=== PATIENT | male | born 1955 | race Caucasian/White ===

== ENCOUNTER → 2016-04-17 | Day surgery (SDC) | payer BC ==
[~2016-04-17] VITALS: Ht 188 cm; Wt 86.5 kg
[~2016-04-17] MED LIST: ALLO100T PO; AMLO5TAB2 PO; CLON0.1T PO; CYCLOPENTOLATE HCL 1% OPHT SOLN 2 ML BTL ONE; DEXAMETHASONE SOD PHOS 4 MG/ML VIAL ONE; DIFL0.0512 LEFT EYE; ENAL20TA PO; EPINEPHrine-Lidocaine/BSS (PF/SF) 4-120 mg/16 mL OPTH SYR LEFT EYE ONE; GEMF600T PO; HYALURONIDASE/LIDOCAINE/EPINEPHRINE/BUPIVACAINE 4.5 ML SYR LEFT EYE ONE; HYALURONIDASE/LIDOCAINE/EPINEPHRINE/BUPIVACAINE 6 ML SYR LEFT EYE ONE; HYDR12.57 PO; KETO0.5S2 LEFT EYE; MIDAZOLAM HCL 5 MG/ML VIAL (1 ML) ONE; NEPA0.3D LEFT EYE; ONDANSETRON HCL 4 MG/2 ML VIAL IV PUSH ONE; PRED1SUS LEFT EYE; PROPOFOL 200 MG/20 ML AMP IV ONE; SODIUM CHLORID 0.9% 500 ML INJ 500 ML ONE; TETRACAINE 0.5% OPTH SOLN 2 ML BTL ONE; TROPICAMIDE 1% OPHT SOLN 15 ML BTL ONE; VIGA0.5D LEFT EYE
[2016-04-17 06:39] VITALS: BP 147/77; PULSE 116; RESP 18; TEMP 98.2; O2SAT 98
[2016-04-17] MEDS: TROPICAMIDE 1% OPHT SOLN 15 ML BTL LEFT EYE SCH ×3 (06:47→06:57)
[2016-04-17] MEDS: CYCLOPENTOLATE HCL 1% OPHT SOLN 2 ML BTL LEFT EYE SCH ×3 (06:47→06:57)
[2016-04-17] MEDS: TETRACAINE 0.5% OPTH SOLN 2 ML BTL LEFT EYE SCH ×3 (06:47→06:57)
[2016-04-17] MEDS: PHENYLEPHRINE HCL 10% OPTH SOLN 5 ML BTL LEFT EYE SCH ×3 (06:47→06:57)
[2016-04-17] MEDS: TOBRAMYCIN/DEXAMETHASONE OPTH OINT 3.5 GM TUBE ONE ×2 (07:48→08:37)
[2016-04-17 10:00] VITALS: BP 123/64; PULSE 85; RESP 16; TEMP 98.5; O2SAT 97
--- NOTE | 2016-04-17 10:22 | PD.OP ---
Operative Report Date of Surgery: Apr 17, 2016 Preoperative Diagnosis: (1) Posterior subcapsular age-related cataract, left eye Postoperative Diagnosis: (1) Pseudophakia of left eye Procedure: phacoemulsification and intraocular lens implant left eye Anesthesia: General Surgeon: Anayeli Vang Mobility Engineer(s): none Operation and Findings: Patient was consented for surgery and taken back to the operating room. He was put under general anesthesia and prepped and draped in the usual sterile fashion for ophthalmic surgery. A wire lid speculum was placed in the left eye. A paracentesis incision was created at the 5 o'clock position on the limbus. Vision blue dye and viscoelastic was injected into the anterior chamber. The main incision was created at the 2 o'clock position on the limbus with a 2.4 mm keratome. A continuous curvilinear capsulorrhexis was made on the anterior lens capsule. Hydrodissection was used to separate the lens nucleus from the capsule. Phacoemulsification was used to remove the lens nucleus material. Irrigation and aspiration was used to remove the remaining cortical material. The lens implant ([id number] [id number] SN [id number]) was placed in the capsular bag. Viscoelastic was removed with irrigation and aspiration. The incisions were irrigated and found to be watertight. Tobradex ointment, a patch, and shield were placed on the left eye. The patient was sent to PACU in stable condition. Anayeli Vang MD Apr 17, 2016 10:22
== END | disposition home or self-care (01) ==
LOC: CSDC 05:45
PROVIDERS: ATTEND Ophthalmology
DX: H25.042 Posterior subcapsular polar age-related cataract, left eye (principal)
CPT/HCPCS: 00142; 66984; J1100; J2250; J2405; J3010; J7040; V2632

== ENCOUNTER 2017-11-03 09:08 | Observation (INO) ==
--- NOTE | 2017-11-03 09:28 | ED ---
HPI General Chief Complaint: Recheck/Abnormal Lab/Rx Stated Complaint: PHY sent Time Seen by Provider: 11/03/17 09:25 Source: patient Mode of arrival: ambulatory Limitations: no limitations History of Present Illness HPI narrative: 62-year-old male patient with history of hypertension, presents to the ER today sent in by his primary care doctor because he found that his heartbeat was irregular at their clinic visit today. Patient states that he feels fine, denies any chest pains, dizziness, or any other symptoms. He states that he was a routine clinic evaluation. Related Data Home Medications Medication Instructions Recorded Confirmed allopurinol 100 mg PO DAILY 11/03/17 11/03/17 amlodipine 11/03/17 11/03/17 amlodipine 5 mg PO DAILY 11/03/17 11/03/17 clonidine HCl 0.1 mg PO QAM AND QHS 11/03/17 11/03/17 enalapril maleate 20 mg PO DAILY 11/03/17 11/03/17 gemfibrozil 600 mg PO BID 11/03/17 11/03/17 hydrochlorothiazide 12.5 mg PO DAILY 11/03/17 11/03/17 Allergies Allergy/AdvReac Type Severity Reaction Status Date / Time No Known Allergies Allergy Verified 11/03/17 09:14 Review of Systems ROS: all other systems reviewed are negative PMFSH History History Provided By: Patient Medical History Medical History High cholesterol (Acute) Prediabetes (Acute) HTN (hypertension) (Acute) Social History Social History Substance History: No History of Abuse Second Hand Smoke Exposure: No Smoking Status: Never smoker How Often Do You Have a Drink Containing Alcohol: 4 or more times a week Recent Travel in [facility] within the Last 8 Weeks: No Recent Out of Country Travel within the Last 8 Weeks: No Exam Narrative Exam Narrative: GENERAL: Well-developed elderly white male patient currently in no acute distress. Awake and oriented 3. SKIN: Focused skin assessment warm/dry. HEAD: Atraumatic. Normocephalic. EYES: Pupils equal and round. No scleral icterus. No injection or drainage. ENT: No nasal bleeding or discharge. Mucous membranes pink and moist. NECK: Trachea midline. No JVD. CARDIOVASCULAR: Irregularly irregular. No rubs or murmurs. RESPIRATORY: No accessory muscle use. Clear to auscultation. Breath sounds equal bilaterally. GASTROINTESTINAL: Abdomen soft, non-tender, nondistended. Hepatic and splenic margins not palpable. MUSCULOSKELETAL: No obvious deformities. No clubbing. No cyanosis. No edema. NEUROLOGICAL: Awake and alert. No obvious cranial nerve deficits. Motor grossly within normal limits. Normal speech. PSYCHIATRIC: Appropriate mood and affect; insight and judgment normal. Course Initial Documented Vital Signs Temperature 97.5 F L 11/03/17 09:12 Pulse Rate 98 H 11/03/17 09:12 Respiratory Rate 19 11/03/17 09:12 Blood Pressure 167/83 H 11/03/17 09:12 Pulse Oximetry 99 11/03/17 09:12 Last Documented Vital Signs Temperature 97.5 F L 11/03/17 09:12 Pulse Rate 101 H 11/03/17 09:14 Respiratory Rate 18 11/03/17 09:14 Blood Pressure 140/69 11/03/17 09:14 Pulse Oximetry 99 11/03/17 09:14 Medical Decision Making MDM Narrative Medical decision making narrative: EKG is definitely abnormal, but is not atrial fibrillation. I did hear some runs of irregular rhythm, it appears that they are PVCs on evaluation of patient's EKG from his physician. The current EKG is sinus tachycardia but he has T-wave changes which are notable in V1 through V4. On further questioning, the patient admits that he has been having some type of chest discomfort which he states feels like a rattling in his chest but that has been going on for 10 years and he reports no changes. He is still having some chest discomfort now. At this point, I think he does deserve further evaluation of his heart my plan would be to admit him to chest pain center for further evaluation. Medical Screen Exam Complete: Yes Emergency Medical Condition: Yes Differential Diagnosis Differential Diagnosis: Dysrhythmias versus electrolyte abnormalities Lab Data Lab results reviewed: Yes I reviewed the patient's lab results. Result diagrams: 11/03/17 09:49 11/03/17 09:49 Lab Results 11/03/17 11/03/17 11/03/17 Range/Units 09:49 09:49 09:49 WBC 5.0 (4.0-11.0) th/mm3 RBC 3.98 L (4.50-5.90) mil/mm3 Hgb 13.6 (13.0-17.0) gm/dL Hct 39.2 (39.0-51.0) % MCV 98.6 (80.0-100.0) fL MCH 34.2 H (27.0-34.0) pg MCHC 34.7 (32.0-36.0) % RDW 12.8 (11.6-17.2) % Plt Count 318 (150-450) th/mm3 MPV 7.4 (7.0-11.0) fL Neut % (Auto) 65.9 (16.0-70.0) % Lymph % (Auto) 20.0 (9.0-44.0) % [place] % (Auto) 10.8 H (0.0-8.0) % Eos % (Auto) 1.1 (0.0-4.0) % Baso % (Auto) 2.2 H (0.0-2.0) % Neut # (Auto) 3.3 (1.8-7.7) th/mm3 Lymph # (Auto) 1.0 (1.0-4.8) th/mm3 [place] # (Auto) 0.5 (0.0-0.9) th/mm3 Eos # (Auto) 0.1 (0.0-0.4) th/mm3 Baso # (Auto) 0.1 (0.0-0.2) th/mm3 WBC Differential . Differential Comment Auto diff final PT 10.4 (9.8-11.6) sec INR 1.0 Ratio APTT 24.8 (24.3-30.1) sec Sodium 136 (136-145) meq/L Potassium 3.8 (3.5-5.1) meq/L Chloride 100 (98-107) meq/L Carbon Dioxide 25.6 (21.0-32.0) meq/L Anion Gap 10 (5-15) meq/L BUN 16 (7-18) mg/dL Creatinine 0.97 (0.60-1.30) mg/dL Estimated GFR 78 L (>89) mL/min Random Glucose 120 H (74-106) mg/dL Calcium 8.9 (8.5-10.1) mg/dL Total Bilirubin 0.5 (0.2-1.0) mg/dL AST 41 H (15-37) U/L ALT 35 (12-78) U/L Alkaline Phosphatase 105 (45-117) U/L Troponin I Less than 0.02 L (0.02-0.05) ng/mL Total Protein 7.7 (6.4-8.2) g/dL Albumin 3.9 (3.4-5.0) g/dL Imaging Data Attestation: I personally reviewed and interpreted this imaging study as follows : Radiologist's impression: Chest X-Ray 11/03/17 09:25 CONCLUSION: Negative for acute process ECG Data Attestation: I personally reviewed and interpreted this ECG as follows: Interpretation: EKG shows sinus tachycardia at a rate of 100 bpm. He has T- wave inversions notable in V1 through V4. I do not see any signs of acute ST elevations. These findings were seen and the EKG sent by his primary care doctor's office from this morning as well. Discharge Plan Discharge Disposition Patient Disposition: 30 Still Patient Discharge Condition Condition: Stable Discharge Details Anticipated Discharge Date: 11/03/17 Diagnosis: Atypical chest pain, Abnormal ECG Physicians Team ED Provider: Wendy Sunshine Primary Care Provider: Burt Guevara Rxs /Orders / Referrals /Forms Prescriptions: No Action enalapril maleate 20 mg Tablet 20 mg PO DAILY RF: 0 amlodipine 5 mg Tablet 5 mg PO DAILY RF: 0 allopurinol 100 mg Tablet 100 mg PO DAILY RF: 0 gemfibrozil 600 mg Tablet 600 mg PO BID RF: 0 hydrochlorothiazide 12.5 mg Capsule 12.5 mg PO DAILY RF: 0 clonidine HCl 0.1 mg Tablet Extended Release 12 Hr 0.1 mg PO QAM AND QHS RF: 0 amlodipine RF: 0 Discharge Interventions Interventions: Vital Signs Last Done: 11/03/17 09:14 Status ED Status: Admitted Patient
[2017-11-03 10:07] LABS: Baso # (Auto) 0.1 th/mm3 (0.0-0.2); Baso % (Auto) 2.2 % (0.0-2.0); Eos # (Auto) 0.1 th/mm3 (0.0-0.4); Eos % (Auto) 1.1 % (0.0-4.0); Hematocrit 39.2 % (39.0-51.0); Hemoglobin 13.6 gm/dL (13.0-17.0); Mean Corpuscular HGB Conc 34.7 % (32.0-36.0); Mean Corpuscular Hemoglobin 34.2 pg (27.0-34.0); Mean Corpuscular Volume 98.6 fL (80.0-100.0); Mean Platelet Volume 7.4 fL (7.0-11.0); Mono # (Auto) 0.5 th/mm3 (0.0-0.9); Mono % (Auto) 10.8 % (0.0-8.0); Neut # (Auto) 3.3 th/mm3 (1.8-7.7); Neut % (Auto) 65.9 % (16.0-70.0); Platelet Count 318 th/mm3 (150-450); Red Blood Count 3.98 mil/mm3 (4.50-5.90); Red Cell Distribution Width 12.8 % (11.6-17.2)
[2017-11-03 10:22] LABS: Activated Partial Thrombo Time 24.8 sec (24.3-30.1); Prothrombin Time 10.4 sec (9.8-11.6)
[2017-11-03 10:25] LABS: Alanine Aminotransferase 35 U/L (12-78); Albumin 3.9 g/dL (3.4-5.0); Anion Gap 10 meq/L (5-15); Aspartate Aminotransferase 41 U/L (15-37); Blood Urea Nitrogen 16 mg/dL (7-18); Calcium 8.9 mg/dL (8.5-10.1); Carbon Dioxide 25.6 meq/L (21.0-32.0); Chloride 100 meq/L (98-107); Glomerular Filtration Rate 78 mL/min (>89); Glucose,Random 120 mg/dL (74-106); Potassium 3.8 meq/L (3.5-5.1); Sodium 136 meq/L (136-145)
[2017-11-03 10:31] LABS: Alkaline Phosphatase 105 U/L (45-117); Total Protein 7.7 g/dL (6.4-8.2)
--- NOTE | 2017-11-03 10:55 | XR ---
EXAM DATE: 11/03/2017 10:50 AM EDT AGE/SEX: 62 years / Male INDICATIONS: Patient seen today by primary care physician and sent to emergency room after abnormal EKG. CLINICAL DATA: This is the patient's initial encounter. Patient reports that signs and symptoms have been present for 1 day and indicates a pain score of 0/10. MEDICAL/SURGICAL HISTORY: None. None. COMPARISON: [facility] [place], CHEST SINGLE AP, 06/16/2014. . FINDINGS: A single AP view of the chest demonstrates the lungs to be symmetrically aerated without evidence of mass, infiltrate or effusion. The cardiomediastinal contours are unremarkable. Osseous structures a re intact. CONCLUSION: Negative for acute process Electronically signed by: Rashaun Rucker MD 11/03/2017 10:53 AM EDT
[2017-11-03] MEDS ORDERED: Iohexol 350 MG/ML 100 ML Vial (for Cath Lab) IVCONTRAST ONE (10:57)
--- NOTE | 2017-11-03 12:44 | P.HPCA ---
History of Present Illness Primary Care Physician: Burt Guevara MD Chief Complaint: Abnormal EKG History of Present Illness: This is a 62-year-old male with history of hypertension and hyperlipidemia that presents to ED at the request of his PCP to be evaluated for an abnormal EKG. Patient states he was in his doctor's office to review recent lab reports. States his labs are all looking fine. EKG was obtained showing with the patient states was an abnormality per his primary care physician. His primary care than urged him to go to the ED to seek evaluation. Patient denies chest pain. Denies any type of discomfort in his chest. Denies shortness of breath. Cannot recall prior stress test or heart catheterization. He was a past smoker. Quit 15 years ago. Patient with smoking cigarettes 15 years ago prior that he smoked 1/2-2 pack a series daily for about 20 years. Denies family history of CAD. Patient has history of hypertension and hyperlipidemia. - Diagnosis (1) Abnormal ECG (2) Hypertension (3) Hyperlipidemia Review of Systems General: Patient denies fevers, chills, and recent travel. HEENT: Patient denies headache, sore throat, difficulty swallowing. Cardiovascular: Denies chest discomfort as mentioned above. Denies sensation of heart beating rapidly or irregularly. No syncope. Denies diaphoresis. Respiratory: Denies shortness of breath or inspirational chest discomfort. Denies coughing wheezing or hemoptysis. GI: Patient denies nausea, vomiting, diarrhea, abdominal pain, bloody stools. Musculoskeletal: Patient denies joint pain or edema. Denies calf pain or edema. Neurovascular: Patient denies numbness, tingling, weakness in extremities. Denies headache. Endocrine: Denies polyuria and polydipsia. Hematologic: Denies easy bruising. Skin: Denies rash or itching. PMFSH - History History Provided By: Patient - Medical History Medical History: Medical History (Last Updated 11/03/17 @ 09:34 by Modesto Aguilar) High cholesterol Prediabetes HTN (hypertension) - Tobacco History Second Hand Smoke Exposure: No Tobacco Use In Past 30 Days: No Smoking Status: Never smoker - Alcohol History How Often Do You Have a Drink Containing Alcohol: 4 or more times a week - Substance Use History Substance History: No History of Abuse - Travel History Recent Travel in the [place] Within the Last 8 Weeks: No Recent Travel Out of the Country Within the Last 8 Weeks: No - Immunization History Tetanus Immunization: Never Vaccinated Hx Influenza Vaccine This Season: Yes Medications and Allergies Active Medications: Active Medications Ondansetron HCl (Zofran Inj) 4 mg IV.PUSH Q6H PRN PRN Reason: NAUSEA Sodium Chloride (Ns Flush) 2 ml IV.FLUSH UNSCH PRN PRN Reason: FLUSH AFTER USING IV ACCESS Sodium Chloride (Ns Flush) 2 ml IV.FLUSH BID [place] Sodium Chloride (Ns Flush) 2 ml IV.FLUSH PRN PRN PRN Reason: FLUSH AFTER USING IV ACCESS Allergies Allergy/AdvReac Type Severity Reaction Status Date / Time No Known Allergies Allergy Verified 11/03/17 09:14 Home Medications Medication Instructions Recorded Confirmed Type allopurinol 100 mg PO DAILY 11/03/17 11/03/17 History amlodipine 11/03/17 11/03/17 History amlodipine 5 mg PO DAILY 11/03/17 11/03/17 History clonidine HCl 0.1 mg PO QAM AND QHS 11/03/17 11/03/17 History enalapril maleate 20 mg PO DAILY 11/03/17 11/03/17 History gemfibrozil 600 mg PO BID 11/03/17 11/03/17 History hydrochlorothiazide 12.5 mg PO DAILY 11/03/17 11/03/17 History Exam Vital signs: Vital Signs 11/03/17 09:12 11/03/17 09:14 11/03/17 11:36 Temperature 97.5 F L Pulse Rate 98 H 101 H Respiratory Rate 19 18 Blood Pressure 167/83 H 140/69 Pulse Oximetry 99 99 99 11/03/17 12:00 Temperature 98.1 F Pulse Rate 101 H Respiratory Rate 16 Blood Pressure 139/73 Pulse Oximetry 99 Intake & Output 11/02/17 11/03/17 11/03/17 18:59 06:59 18:59 Weight 91.172 kg Narrative: GENERAL: This is a well-nourished, well-developed patient, in no apparent distress. Patient speaks in clear complete sentences. Patient is pleasant. HEENT: Head is atraumatic and normocephalic. Neck is supple without lymphadenopathy and trachea is midline. No JVD or carotid bruits. CARDIOVASCULAR: Regular rate and rhythm without murmurs, gallops, or rubs. RESPIRATORY: Clear to auscultation. Breath sounds equal bilaterally. No wheezes , rales, or rhonchi. Chest wall is nontender. No use of accessory muscles. GASTROINTESTINAL: Abdomen is nontender, nondistended. Abdomen soft. No obvious pulsatile mass or bruit. No CVA tenderness. Strong femoral pulses bilaterally. Normal bowel sounds in all quadrants. MUSCULOSKELETAL: Patient is moving upper and lower extremities freely. No calf tenderness or edema, no Homans sign. Strong pulses in upper and lower extremities. NEUROLOGICAL: Patient is alert and oriented. Cranial nerves 2-12 are grossly intact. No focal deficits and speech is clear. SKIN: No rash and turgor is normal. Results 11/03/17 09:49 11/03/17 09:49 Cardiac Enzymes 11/03/17 Range/Units 09:49 AST 41 H (15-37) U/L Troponin I Less than 0.02 L (0.02-0.05) ng/mL Coagulation 11/03/17 Range/Units 09:49 PT 10.4 (9.8-11.6) sec APTT 24.8 (24.3-30.1) sec CBC 11/03/17 Range/Units 09:49 WBC 5.0 (4.0-11.0) th/mm3 RBC 3.98 L (4.50-5.90) mil/mm3 Hgb 13.6 (13.0-17.0) gm/dL Hct 39.2 (39.0-51.0) % Plt Count 318 (150-450) th/mm3 Neut # (Auto) 3.3 (1.8-7.7) th/mm3 Lymph # (Auto) 1.0 (1.0-4.8) th/mm3 [place] # (Auto) 0.5 (0.0-0.9) th/mm3 Eos # (Auto) 0.1 (0.0-0.4) th/mm3 Baso # (Auto) 0.1 (0.0-0.2) th/mm3 Comprehensive Metabolic Panel 11/03/17 Range/Units 09:49 Sodium 136 (136-145) meq/L Potassium 3.8 (3.5-5.1) meq/L Chloride 100 (98-107) meq/L Carbon Dioxide 25.6 (21.0-32.0) meq/L BUN 16 (7-18) mg/dL Creatinine 0.97 (0.60-1.30) mg/dL Calcium 8.9 (8.5-10.1) mg/dL AST 41 H (15-37) U/L ALT 35 (12-78) U/L Alkaline Phosphatase 105 (45-117) U/L Total Protein 7.7 (6.4-8.2) g/dL Albumin 3.9 (3.4-5.0) g/dL Intake and Output 11/02/17 11/03/17 11/03/17 22:59 06:59 14:59 Other: Weight 91.172 kg Patient Weight 11/04/17 06:59 Weight 91.172 kg EKG interpretations - EKG EKG shows: sinus rhythm (EKG is sinus rhythm with nonspecific anteroseptal changes which were also on a prior EKG from 2015.) Caprini VTE Risk Assessment Caprini VTE Risk Assessment: Moderate/High Risk (score >= 2) Caprini Risk Assessment Model: Point Value = 1 Point Value = 2 Point Value = 3 Point Value = 5 Age 41-60 Minor surgery BMI > 25 kg/m2 Swollen legs Varicose veins or History of unexplained or recurrent spontaneous Oral contraceptives or hormone replacement Sepsis (< 1 month) Serious lung disease, including pneumonia (< 1 month) Abnormal pulmonary function Acute myocardial infarction Congestive heart failure (< 1 month) History of inflammatory bowel disease Medical patient at bed rest Age 61-74 Arthroscopic surgery Major open surgery (> 45 min) Laparoscopic surgery (> 45 min) Malignancy Confined to bed (> 72 hours) Immobilizing plaster cast Central venous access Age >= 75 History of VTE Family history of VTE Factor V Leiden Prothrombin [id number] Lupus anticoagulant Anticardiolipin antibodies Elevated serum homocysteine Heparin-induced thrombocytopenia Other congenital or acquired thrombophilia Stroke (< 1 month) Elective arthroplasty Hip, pelvis, or leg fracture Acute spinal cord injury (< 1 month) Prophylaxis Regimen: Total Risk Factor Score Risk Level Prophylaxis Regimen 0-1 Low Early ambulation 2 Moderate Order ONE of the following: *Sequential Compression Device (SCD) *Heparin 5000 units SQ BID 3-4 Higher Order ONE of the following medications: *Heparin 5000 units SQ TID *Enoxaparin/Lovenox 40 mg SQ daily (WT < 150 kg, CrCl > 30 mL/min) *Enoxaparin/Lovenox 30 mg SQ daily (WT < 150 kg, CrCl > 10-29 mL/min) *Enoxaparin/Lovenox 30 mg SQ BID (WT < 150 kg, CrCl > 30 mL/min) AND/OR *Sequential Compression Device (SCD) 5 or more Highest Order ONE of the following medications: *Heparin 5000 units SQ TID (Preferred with Epidurals) *Enoxaparin/Lovenox 40 mg SQ daily (WT < 150 kg, CrCl > 30 mL/min) *Enoxaparin/Lovenox 30 mg SQ daily (WT < 150 kg, CrCl > 10-29 mL/min) *Enoxaparin/Lovenox 30 mg SQ BID (WT < 150 kg, CrCl > 30 mL/min) AND *Sequential Compression Device (SCD) Assessment and Plan - Assessment (1) Abnormal ECG Code(s): R94.31 - Abnormal electrocardiogram [ECG] [EKG] Status: Acute (2) Hypertension Code(s): I10 - Essential (primary) hypertension Status: Acute (3) Hyperlipidemia Code(s): E78.5 - Hyperlipidemia, unspecified Status: Acute - Plan * Abnormal EKG: Patient denies having chest discomforts. An EKG from 2015 revealed similar findings. Patient will have a nuclear ETT and be seen by Dr. Chan Lopez of cardiology in the chest pain center. He will be discharged home if the stress test is nonischemic with instructions to follow-up with his PCP. Return to ED for interval issues. * Hypertension: Continue medication. * Hyperlipidemia: Continue medication. Patient is stable at this time. He is agreeable to this plan.
--- NOTE | 2017-11-03 15:21 | NM ---
EXAM DATE: 11/03/2017 3:13 PM EDT AGE/SEX: 62 years / Male INDICATIONS: Angina. Abnormal EKG CLINICAL DATA: This is the patient's initial encounter. Patient reports that signs and symptoms have been present for 1 day and indicates a pain score of 0/10. MEDICAL/SURGICAL HISTORY: Diabetes mellitus type II. Hypertension. None. COMPARISON: [facility] – [place], CT ABDOMEN & PELVIS W CONTRAST, 06/16/2014. . DOSE: 8.6 mCi Tc 99m Myoview at rest 25.4 mCi [id number] at stress REST HEART RATE: 91 BPM TARGET HEART RATE: 133 BPM MAX HEART RATE: 161 BPM REST BLOOD PRESSURE: 138/70 mmHg MAX BLOOD PRESSURE: 160/70 mmHg EJECTION FRACTION: 69 % TECHNIQUE: The patient underwent upright treadmill exercise in the chest pain center. Continuous EC G tracing was monitored during stress. Gated SPECT imaging was performed after stress, and conventio nal SPECT imaging was performed at rest. The examination was performed on a SPECT/CT scanner, both a ttenuation-corrected and non-corrected datasets were reviewed. FINDINGS: Best perfused myocardium is the septum. There is a large area redistribution in the anterior myocardi um beginning in mid ventricular wall extending towards the apex. There is minimal redistribution in t he inferior wall mid ventricular wall. Ejection fraction is 69% with minimal hypokinesis anterior lateral wall. . RISK CATEGORY: Low (<1% Annual Motality Rate) CONCLUSION: 1. Stress-induced ischemia in the anterior lateral myocardium.. 2. Patient achieved maximum heart rate. Exam was stopped because of shortness of breath. Electronically signed by: Rashaun Rucker MD 11/03/2017 3:19 PM EDT
[2017-11-03] MEDS ORDERED: Heparin/NS PF Inj 1,500 ML ONE (16:13)
[2017-11-03] MEDS ORDERED: Heparin 10,000 UNITS/10 ML Vial (for IV use) ONE (16:14)
[2017-11-03] MEDS ORDERED: fentaNYL Citrate Inj 100 MCG/2 ML Ampul ONE (16:14)
--- NOTE | 2017-11-03 17:03 | CATHPROC ---
[employer] HIS Report Study Information Study Number Admission Scheduled Start Study Start [id number] Nov 03 2017 10:56AM 11/03/2017 Nov 03 2017 4:11PM [place] Service Cardiac Catheterization Admit Source Facility Department Emergency department [facility] - [facility] Physician and Clinical Staff Initial Bryan Angel Research Asst Orion Auguste RN Research Asst Tim Clarke RN cathlab, cathlab Recorder Ehsan Del Toro RCIS(BS) Rosy Castle RCIS TECHDandy Procedures Performed Procedure Location (Site) Vessel Name Coronary Angiograms LCA Left Coronary Coronary Angiograms RCA Right Coronary L Heart Cath Equipment Time Courtesy Clerk Description Size Mfg Part Number Used/Scraped TRANSDUCER, TRUWAVE [id number] 16:12 RG JIN * Used W/STOCKCOCK *[id number] [id number] *[id number] [id number] *[id number] [id number] *[id number] 16:12 [employer] BLANKET,WARM AIR CCL * Used *[id number] 16:12 [employer] PACK, CCL CUSTOM * Used *[id number] 16:12 [employer] SUPPORT, ARTERIAL ADULT [id number] *[id number] Used BAND, RADIAL COMPRESSION TR [id number] 16:50 Zounds 24CM Used SHORT 24 *[id number] 16:12 [employer] WIRE, EXCHANGE 260CM 3MMJ 260CM Used *[id number] 16:12 NAMIC MANIFOLD, 4 PORT * Used *[id number] 16:12 NYCOMED OMNIPAQUE, 350 MG, 150ML 150ML [id number] Used SHEATH, FR6 TRANSRADIAL [id number] 16:12 [employer] MEDICAL FR 6 Used SLENDER 10CM *[id number] History: Risk Factors Family History of Hypertension Dyslipidemia Previous HI Previous Heart Failure Premature CAD Yes Yes No No No Prior Valve Prior PCI Prior CABG Surgery No No No Cerebrovascular Peripheral Artery Chronic Lung On Dialysis Diabetes Disease Disease Disease No No No No No History: Stress Tests Stress or Imaging Studies Performed Yes Standard Exercise Stress Stress Test Result Stress Test Ischemia Risk/Extent Test Yes Positive High Stress Echo No Stress Test SPECT Stress Test SPECT Result Stress Test SPECT Ischemia Risk/Extent Yes Positive High Stress Test CMR No Cardiac CTA Coronary Calcium Score No No History: Other Disease Selection Items HTN History: Other Current Smoker Method Quit Packs a Day Years Used Pack Years No Cigarettes 131 Years Ago 1 20 20 Labs Hgb (g/dl) Hct (%) WBC (l/cumm) Platelets (thousands) 11.60-17.00 35.00-51.00 4.00-11.00 150.00-450.00 13.6 39 5 318 Glucose (mg/dl) BUN (mg/dl) Creatinine (mg/dl) BUN:Creatinine (1:x) 74.00-106.00 7.00-18.00 0.50-1.30 10.00-20.00 120 16 0.9 17.8 Na (meq/l) K (meq/l) 136.00-145.00 3.50-5.10 136 3.8 INR (PTT:PT) 0.90-1.10 1 Troponin I (ng/ml) CPK-MB (ng/ML) 0.02-0.05 0.50-3.60 0.02 Not Drawn Medication Medication Total Dose (Bolus/Oral) Medication Total Dosage/Unit 1% XYLOCAINE 2 mL FENTANYL 25 mcg RADIAL COCKTAIL 5 mL (Bolus) VERSED 0.5 mg Medications (Bolus/Oral) Medication Time Given Dosage/Unit Administered By Reason VERSED 11/03/2017 4:31:46 PM 0.5 mg Orion Auguste 0.5 mg VERSED given in lab by Orion Auguste RN in Left Antecubital via Peripheral IV. Ordered by Bryan Bailey FENTANYL 11/03/2017 4:32:02 PM 25 mcg Molina Orion 25 mcg FENTANYL given in lab by Orion Auguste RN in Left Antecubital via Peripheral IV. Ordered by Bryan Haynes. 1% XYLOCAINE 11/03/2017 4:33:26 PM 2 mL Bryan Pyle 2 mL 1% XYLOCAINE given in lab by Bryan Pyle in Right Radial via Subcutaneous. Ntg 200mcg Verapamil 2.5mg Heparin RADIAL COCKTAIL 11/03/2017 4:34:02 PM 5 mL (Bolus) Bryan Pyle 2000U 5 mL (Bolus) RADIAL COCKTAIL given in lab by Bryan Pyle via Radial. Using [Solution Name]. R avery: Ntg 200mcg Verapamil 2.5mg Heparin 3600U. Medication (Drip) Medication Time Given Dosage/Unit Concentration/Unit Diluent (ml) Solution IV Solutions 11/03/2017 4:11:08 PM 0 mL (IV) 500 NaCl .9 Patient arrived on IV Solutions in Left Antecubital via Peripheral IV. Pump/Drip Flow = 20 ml/hr usin g NaCl .9. Ordered by Bryan Pyle Initial Case Assessment Cardiovascular HR Rhythm NIBP Chest Pain 98 stachy 131/74 0 Edema Present Skin color Skin None Normal Warm Dry Circulatory - Right Pulses Dorsalis Pedis Femoral Radial 3 2 2 Scale (0,1,2,3,4,d) Scale (0,1,2,3,4,d) Neurological State Oriented to time-place- Alert Moves all extremities person Respiration - General Respiration Rate SpO2 (%) (B/min) 15 100 Final Case Assessment Cardiovascular HR Rhythm NIBP Chest Pain 94 stachy 130/79 0 Edema Present Skin color Skin None Normal Warm Dry Circulatory - Right Pulses Dorsalis Pedis Femoral Radial 3 2 2 Scale (0,1,2,3,4,d) Scale (0,1,2,3,4,d) Neurological State Oriented to time-place- Alert Moves all extremities person Respiration - General Respiration Rate SpO2 (%) (B/min) 15 100 Chronological Log Time Study Chronological Log 16:10:49 Patient arrived via Bed. 16:10:49 Patient Name, D.O.B, / Armband Verified By R.N. 16:10:52 Consent signed by the physician and the patient and verified by the [facility] staff. 16:10:53 Pre-op and post- op instructions given; patient acknowledges understanding of instructions. 16:10:57 Presedation assessment performed by [facility] [facility] RN. 16:11:01 Allens test performed on the right radial and ulnar artery. 16:11:05 Patient has been NPO for More than 6Hrs. 16:11:05 Skin Breakdown-none per patient 16:11:06 Patient Warmer Placed on the Table. 16:11:07 Karthik Prominences Protected 16:11:07 A # 20 IV was noted in the Antecubital (left). Grade = 0 Patient arrived on IV Solutions in Left Antecubital via Peripheral IV. Pump/Drip Flow = 20 ml/h r using NaCl .9. Ordered 16:11:08 by Pyle, Vincent G. 16:11:10 History and physical on the chart or being dictated. Vitals capture started with the following parameters, Patient=Adult, Interval=3 min, Initial Pr idvjiq=372 mmHg, 16:16:31 Deflation Rate=5 mmHg, Cuff placed on Left Arm Assessment: Initial Case, HR=98 BPM, Rhythm=stachy, ISTZ=935/74 mmhg, Chest Pain=0, Edema=None, Color=Normal, Skin = Warm, Dry 16:16:33 Right Pulses: Dick Ped=3, Femoral=2, Radial=2 Neurological: State=Alert, Ox3, DU Respiration: Resp=15 B/min, OxT7=109 % 16:17:31 LXKB=432/74 mmhg, SpO2=99.0 % 16:19:31 Reference ECG taken 16:22:07 ER=483 bpm, ANVD=915/82 mmhg, SpO2=99.0 %, Resp=11 B/min, Pain=0, Miguel Angel=10, Rajput=2 16:22:22 Right Radial and groin(s) prepped with 2% chlorhexidine, and draped after a 3 min. waiting time. 16:22:29 MD arrived. 16::57 Contrast Scanned 16::57 Immediate Presedation assesment performed by physician. 16:26:48 Pressure channel 1 zeroed. 16:27:08 HR=95 bpm, ASVY=056/87 mmhg, SpO2=97.0 %, Resp=18 B/min, Pain=0, Miguel Angel=10, Rajput=2 Time Out. Correct patient, correct procedure, correct physician, labs, allergies, and equipment verified with laboratory clerk 16:31:37 team present. Fire risk assesment completed (see hard stop sheet for coding). Time Out Conc urred by MD and individual staff in procedure. 16:31:46 0.5 mg VERSED given in lab by Orion Auguste RN in Left Antecubital via Peripheral IV. Order ed by Bryan Pyel 25 mcg FENTANYL given in lab by Orion Auguste RN in Left Antecubital via Peripheral IV. Ordered by Bryan Pyle 16:32:02 G. 16:32:09 AU=926 bpm, ULBY=194/80 mmhg, SpO2=98.0 %, Resp=15 B/min, Pain=0, Miguel Angel=10, Rajput=2 16:33:26 2 mL 1% XYLOCAINE given in lab by Bryan Pyle in Right Radial via Subcutaneous. 16:33:41 Access site was Right Radial Artery . A SHEATH, FR6 TRANSRADIAL SLENDER 10CM FR 6 was advanced into the Radial (right) using the Perc utaneous 16:33:54 technique. 5 mL (Bolus) RADIAL COCKTAIL given in lab by Bryan Pyle via Radial. Using [Solution Na me]. Reason: Ntg 16:34:02 200mcg Verapamil 2.5mg Heparin 3600U. A JR 4.0 INFINITI CATHETER FR 5 was advanced over a wire. OMNIPAQUE, 350 MG, 150ML 150ML was us ed for 16:35:45 injections. 16:37:08 MU=635 bpm, CLVU=408/88 mmhg, SpO2=95.0 %, Resp=14 B/min, Pain=0, Miguel Angel=10, Rajput=2 Recorded Pressure: LV, YW=225, Condition=Condition 1 16:37:23 (Left Ventricle) LV 132/-1/2 Recorded Pressure: LV, Ao, BK=500, Condition=Condition 1 16:37:39 (Left Ventricle) LV 132/-4/4, (Aorta) Ao 129/75/97 16:38:20 The RCA was injected and visualized at various angles. OMNIPAQUE, 350 MG, 150ML 150ML used . Recorded Pressure: Ao, HR=82, Condition=Condition 1 16:38:45 (Aorta) Ao 120/73/94 After removing the current catheter a JL 3.5 INFINITI CATHETER FR 5 was advanced over a WIRE, EXCHANGE 260CM 16:39:02 3MMJ 260CM. 16:41:57 The LCA was injected and visualized at various angles. OMNIPAQUE, 350 MG, 150ML 150ML use d. 16:42:07 BK=018 bpm, EGKR=622/80 mmhg, SpO2=93.0 %, Resp=18 B/min, Pain=0, Miguel Angel=10, Rajput=2 16:43:19 The LCA was injected and visualized at various angles. OMNIPAQUE, 350 MG, 150ML 150ML use d. 16:47:08 KC=910 bpm, TSYA=334/79 mmhg, SpO2=96.0 %, Resp=15 B/min, Pain=0, Miguel Angel=10, Rajput=2 16:48:29 Catheter was removed 16:49:54 Case End (Physician broke scrub) Assessment: Final Case, HR=94 BPM, Rhythm=stachy, WTLJ=178/79 mmhg, Chest Pain=0, Edema=None, Color=Normal, Skin = Warm, Dry 16:49:58 Right Pulses: Dick Ped=3, Femoral=2, Radial=2 Neurological: State=Alert, Ox3, DU Respiration: Resp=15 B/min, IfQ9=758 % 16:50:23 Catheter(s) removed without difficulty Radial Compression Device Used. 12 mLs of air placed in BAND, RADIAL COMPRESSION TR SHORT 24 2 4CM. Affected 16:50:24 hand 96 % O2 saturation. 16:50:54 Sterile dressing applied to site 16:50:55 No case complications noted. 16:50:55 Cine recording checked. 16:50:56 Bedside Report will be given. 16:51:01 A Left Heart Cath was performed. 16:52:11 Vitals capture stopped. 16:55:19 Patient moved to [facility] End Study - Contrast Media Used In Study Contrast Total Opened (mL) Total Used (mL) Total Wasted (mL) Omnipaque 70 70 0 End Study - Maximum Contrast Load Max Contrast Load (mL) 506.1 End Study - Radiation Exposure Fluoro Time (minutes) 3.9 End Study - Patient Disposition Complications Transferred To Interventional Outcome No [facility] [employer] Holding No attempt made
[2017-11-03] MEDS: Gemfibrozil 600 MG Tablet PO SCH (17:23)
[2017-11-03] MEDS: Aspirin 325 MG Tablet PO SCH (17:23)
--- NOTE | 2017-11-03 20:02 | ECG ---
Date Performed: 11/03/2017 Time Performed: 09:29:29 PTAGE: 62 years EKG: SINUS TACHYCARDIA ST DEVIATION AND MODERATE T-WAVE ABNORMALITY, CONSIDER ANTERIOR ISCHEMIA When compared to previous tracing, ST wave abnormalities are More prominant now. ABNORMAL ECG PREVIOUS TRACING : 06/16/2014 12.45 DOCTOR: Jas Blanca Interpretating Date/Time 11/03/2017 20:01:35
--- NOTE | 2017-11-04 07:17 | MB ---
cc: Bryan Pyle DO DATE: 11/03/2017 REASON FOR CONSULTATION: Abnormal EKG, abnormal stress test. HISTORY OF PRESENT ILLNESS: Tony Rothman is a pleasant 62-year-old male who presented at the request of his primary care physician for an abnormal EKG. He was at his doctor's office to review recent lab reports. Apparently, an EKG was done and because of an abnormality, he was sent to the emergency room. On arrival, EKG was done which showed anterior T-wave inversions concerning for ischemia. He currently denies any chest pain or shortness of breath. He underwent an exercise nuclear stress test and during this with only able to exercise for about 2 minutes before being too short of breath to go on. His nuclear scan showed a large area of the anterior myocardium concern for ischemia. Because of this, he was recommended cardiac catheterization. In seeing him, he is currently hemodynamically stable without chest pain or shortness of breath. PAST MEDICAL HISTORY: 1. Hypertension. 2. Prediabetes. 3. Hyperlipidemia. PAST SURGICAL HISTORY: Denies. ALLERGIES: NO KNOWN DRUG ALLERGIES. MEDICATIONS: 1. Clonidine 0.1 mg every morning and night. 1. Enalapril 20 mg daily. 2. Norvasc 5 mg daily. 3. Hydrochlorothiazide 12.5 mg daily. 4. Allopurinol 100 mg daily. 5. Norvasc unknown dose. 6. Gemfibrozil 600 mg b.i.d. FAMILY HISTORY: Denies premature coronary artery disease or sudden cardiac within the family. SOCIAL HISTORY: The patient previously smoked but quit 15 years ago. Prior to that, he smoked anywhere from half a pack to 2 packs a day for 20 years. Denies alcohol or drug abuse. REVIEW OF SYSTEMS: Fourteen systems were reviewed including osteopathic. Pertinent positives and negatives above, otherwise negative. PHYSICAL EXAMINATION: VITAL SIGNS: Temperature 98.1, heart rate 100, blood pressure 139/73, respirations 16, pulse oximetry 99% on room air. GENERAL: The patient appears well, in no acute distress, alert, awake, and oriented x3. HEENT: Extraocular muscles intact. Mucous membranes moist. NECK: Supple. No JVD at 45 degrees. No carotid bruits heard bilaterally. Carotid upstroke is brisk in nature. HEART: Regular rate and rhythm. Positive 1st and 2nd heart sounds with no noted murmurs, gallops, or rubs. LUNGS: Clear to auscultation bilaterally. No wheezes, rales, or rhonchi. ABDOMEN: Soft, nontender, nondistended. No organomegaly noted. EXTREMITIES: Show no clubbing, cyanosis, or edema. Femoral and distal pulses intact bilaterally. NEUROLOGIC: No focal deficits. SKIN: Warm, dry, and intact. OSTEOPATHIC: No kyphoscoliosis, lordosis, or paraspinal tender points. DIAGNOSTIC DATA: Hemoglobin 13.6, hematocrit 39.2, platelets 318. Potassium 3.8, BUN 16, creatinine 0.97. Troponin less than 0.02. Electrocardiogram (11/03/2017 at 0929): Sinus tachycardia, ST-T wave changes anterolaterally possibly due to ischemia. IMPRESSION: 1. Abnormal EKG concerning for anterior ischemia. 2. Abnormal nuclear stress test showing anterolateral ischemia. 3. High risk exercise stress test, only able to exercise for 2 minutes. 4. Hypertension. 5. Hyperlipidemia. 6. Remote tobacco abuse. RECOMMENDATIONS: 1. Mr. Rothman presented with an abnormal EKG, which correlates with anterior ischemia as well as his nuclear stress test. 2. Nuclear stress test was read as low risk, but due to the size of concern for ischemia should be at least intermediate risk. 3. He underwent the exercise portion of the stress test and during this was only able to exercise for 2 minutes, which would be considered a high risk stress test. 4. Because of all this, I believe that he should undergo cardiac catheterization. Risks, benefits, and alternatives were explained to him and he consents to such. 5. He also states that he occasionally gets a fluttering in his chest in the morning. We will watch him on telemetry while here; and if nothing is found, consideration could be made for Holter monitor or a longer term monitor outpatient by his primary care physician or with followup with me. Thank you for allowing me to see Tony Rothman. If there are any questions, please do not hesitate to call. DO SHU Cordero/duglas , 12:25 AM , 12:35 AM
[2017-11-04] MEDS: Gemfibrozil 600 MG Tablet PO SCH (07:47)
[2017-11-04] MEDS: Aspirin 325 MG Tablet PO SCH (08:29)
[2017-11-04] MEDS ORDERED: amLODIPine 5 MG Tablet PO SCH (09:00)
--- NOTE | 2017-11-04 09:42 | P.PNIM ---
Subjective Interval history: No complaints of chest pain or shortness of breath. Wants to go home. No other concerns at this time. Physical Exam Vital signs: Vital Signs 11/03/17 11:36 11/03/17 12:00 11/03/17 15:42 Temperature 98.1 F 97.8 F Pulse Rate 101 H 88 Respiratory Rate 16 14 Blood Pressure 139/73 141/69 H Pulse Oximetry 99 99 97 11/03/17 17:04 11/03/17 17:59 11/03/17 18:15 Temperature 98.0 F Pulse Rate 84 86 Respiratory Rate 16 Blood Pressure 153/72 H 137/73 Pulse Oximetry 98 98 11/03/17 18:20 11/03/17 18:50 11/03/17 19:20 Temperature Pulse Rate 87 86 87 Respiratory Rate Blood Pressure 130/67 134/70 135/75 Pulse Oximetry 11/03/17 19:50 11/03/17 20:00 11/03/17 23:00 Temperature 98.5 F Pulse Rate 87 87 73 Respiratory Rate Blood Pressure 133/74 133/74 Pulse Oximetry 98 11/04/17 00:00 11/04/17 01:00 11/04/17 02:00 Temperature 98.5 F Pulse Rate 75 65 61 Respiratory Rate 16 Blood Pressure 121/70 Pulse Oximetry 95 11/04/17 03:00 11/04/17 03:52 11/04/17 04:00 Temperature 97.7 F Pulse Rate 55 L 64 57 L Respiratory Rate 16 Blood Pressure 132/74 Pulse Oximetry 96 11/04/17 04:59 11/04/17 06:00 11/04/17 07:00 Temperature Pulse Rate 70 61 64 Respiratory Rate Blood Pressure Pulse Oximetry 11/04/17 07:41 Temperature 98.0 F Pulse Rate 79 Respiratory Rate 16 Blood Pressure 132/69 Pulse Oximetry 95 Intake & Output 11/03/17 11/04/17 11/04/17 18:59 06:59 18:59 Intake Total 245 / 245 480 / 480 Output Total 3 / 3 Balance 245 / 245 477 / 477 Weight 91.36 kg Intake: IV 5 / 5 Heparin/NS PF Inj 1,500 ML @ 0 5 / 5 mls/hr .ROUTE .[facility] Rx#: [id number] Oral 240 / 240 480 / 480 Output: Urine 3 / 3 Other: Date of Last Bowel Movement 11/03/17 11/03/17 Weight On Admission 91.36 kg Narrative: GENERAL: This is a well-nourished, well-developed patient, in no apparent distress. CARDIOVASCULAR: Regular rate and rhythm without murmurs, gallops, or rubs. RESPIRATORY: Clear to auscultation. Breath sounds equal bilaterally. No wheezes , rales, or rhonchi. GASTROINTESTINAL: Abdomen soft, non-tender, nondistended. Normal active bowel sounds MUSCULOSKELETAL: Extremities without clubbing, cyanosis, or edema. NEURO: Alert & Oriented x4 to person, place, time, situation. Moves all ext x4 Results - Labs CBC & Chem 7: 11/03/17 09:49 11/03/17 09:49 Laboratory Results - last 24 hr 11/03/17 11/03/17 11/03/17 09:49 09:49 09:49 WBC 5.0 RBC 3.98 L Hgb 13.6 Hct 39.2 MCV 98.6 MCH 34.2 H MCHC 34.7 RDW 12.8 Plt Count 318 MPV 7.4 Neut % (Auto) 65.9 Lymph % (Auto) 20.0 Swain % (Auto) 10.8 H Eos % (Auto) 1.1 Baso % (Auto) 2.2 H Neut # (Auto) 3.3 Lymph # (Auto) 1.0 Swain # (Auto) 0.5 Eos # (Auto) 0.1 Baso # (Auto) 0.1 WBC Differential . Differential Comment Auto diff final PT 10.4 INR 1.0 APTT 24.8 Sodium 136 Potassium 3.8 Chloride 100 Carbon Dioxide 25.6 Anion Gap 10 BUN 16 Creatinine 0.97 Estimated GFR 78 L Random Glucose 120 H Calcium 8.9 Total Bilirubin 0.5 AST 41 H ALT 35 Alkaline Phosphatase 105 Troponin I Less than 0.02 L Total Protein 7.7 Albumin 3.9 - Imaging Impressions Chest X-Ray 11/03/17 09:25 CONCLUSION: Negative for acute process Myocardial Perfusion Scan Nuc Med 11/03/17 12:04 CONCLUSION: 1. Stress-induced ischemia in the anterior lateral myocardium.. 2. Patient achieved maximum heart rate. Exam was stopped because of shortness of breath. Assessment and Plan - Plan Abnormal EKG: Patient denies having chest discomforts. An EKG from 2014 revealed similar findings. Nuclear stress test showed anterior lateral myocardium ischemia. Cardiology Dr. Pyle was consulted and perform a cardiac catheterization with no significant findings. 2D echo was performed prior to discharge to home. Hypertension: Continue home medications, continue with amlodipine, Vasotec, HCTZ Hyperlipidemia: Continue medication. Discharge patient to home Condition on discharge: Improved Heart healthy diet as tolerated Ad Delphine activity new Rx written: Aspirin 81 mg p.o. daily Follow-up with primary care physician
--- NOTE | 2017-11-04 12:38 | MA ---
cc: Bryan Pyle DO DATE: 11/03/2017 PROCEDURE: Left heart catheterization, coronary angiogram, moderate sedation 18 minutes. PREPROCEDURE DIAGNOSIS: Chest pain, abnormal nuclear stress test (read as low risk, but overall should be intermediate risk based on the size of ischemia), high risk exercise stress test (able to only exercise for 2 minutes). POSTPROCEDURE DIAGNOSIS: Mild coronary artery disease. CONTRAST USED: 70 mL. FLUOROSCOPY: 3.9 minutes. MODERATE SEDATION: 18 minutes. FRAILTY SCORE: 4. ESTIMATED BLOOD LOSS: 10 mL. PROCEDURAL SUMMARY: Tony Rothman is a pleasant 62-year-old male who presented to [facility] due to chest pain. He underwent an exercise nuclear stress test and during this was only able to exercise 2 minutes, which would be considered a high risk test. at the request of his primary care physician for an abnormal EKG. EKG shows significant T-wave inversions anteriorly; and because of this, he underwent an exercise nuclear stress test. During this, he was only able to exercise for 2 minutes making this a higher risk test. Nuclear portion showed anterolateral ischemia, which was read as a low risk, which should be intermediate risk based on the size of the defect. Because of this, he was recommended cardiac catheterization. Risks, benefits and alternatives were explained to him and he consented as such. He was brought to the lab and prepped in the usual sterile fashion. The right radial artery was accessed using modified Seldinger technique and placement of a 5/6 [place] slender sheath. This was easily aspirated and flushed. A JR4 was advanced over a J-wire to the ascending aorta and across the aortic valve for measurement of left ventricular pressure. This was pulled back across the aortic valve showing no significant gradient of aortic stenosis. JR4 was used for selective angiography of the right coronary artery system. This is exchanged out for a JL3.5, which was used for selective angiography of the left coronary artery system. JL3.5 was removed over a J-wire. A radial band was placed over the arteriotomy site for hemostasis. The patient left the electroplating laborer cardiovascularly stable. LEFT MAIN: Normal-sized vessel with adequate reflux. It bifurcates into an LAD and circumflex. LAD: Normal-sized vessel with 20% proximal disease. Distally, it has diffuse 20% to 30% disease, but no significant lesion. It gives off 1 major diagonal with no significant disease. LEFT CIRCUMFLEX: Moderate size vessel with a 30% lesion in the mid portion. It gives off 1 major obtuse marginal with no significant disease. RCA: Moderate to large vessel with 20% disease in the mid portion. Distally it supplies a posterolateral branch, as well as the PDA and no significant disease. LVEDP 4. IMPRESSION: 1. Abnormal EKG. 2. Abnormal stress test. 3. Hypertension. 4. Hyperlipidemia. 5. Fluttering of his heart. RECOMMENDATIONS: 1. Mr. Rothman underwent cardiac catheterization and was found to have mild coronary artery disease. 2. We will watch him overnight and if stable in the morning discharge home. 3. We will check a 2-D echo to look at his overall left ventricular function, cardiac structure and possible valvulopathies. 4. Overall, he has felt some fluttering in his heart and he will be watched on telemetry. If nothing shows on telemetry, consideration should be made for outpatient Holter or longer term rhythm analysis with his primary care physician or myself in the cardiology office. Thank you for allowing me to see Tony Rothman. If there are any questions, please do not hesitate to call. Bryan Pyle, VGP/richelle , 12:43 AM , 12:54 AM
--- NOTE | 2017-11-04 13:06 | P.PNCA ---
Subjective Interval history: No events overnight Feels great Physical Exam Vital signs: Vital Signs 11/03/17 15:42 11/03/17 17:04 11/03/17 17:59 Temperature 97.8 F 98.0 F Pulse Rate 88 84 Respiratory Rate 14 16 Blood Pressure 141/69 H 153/72 H Pulse Oximetry 97 98 98 11/03/17 18:15 11/03/17 18:20 11/03/17 18:50 Temperature Pulse Rate 86 87 86 Respiratory Rate Blood Pressure 137/73 130/67 134/70 Pulse Oximetry 11/03/17 19:20 11/03/17 19:50 11/03/17 20:00 Temperature 98.5 F Pulse Rate 87 87 87 Respiratory Rate Blood Pressure 135/75 133/74 133/74 Pulse Oximetry 98 11/03/17 23:00 11/04/17 00:00 11/04/17 01:00 Temperature 98.5 F Pulse Rate 73 75 65 Respiratory Rate 16 Blood Pressure 121/70 Pulse Oximetry 95 11/04/17 02:00 11/04/17 03:00 11/04/17 03:52 Temperature 97.7 F Pulse Rate 61 55 L 64 Respiratory Rate 16 Blood Pressure 132/74 Pulse Oximetry 96 11/04/17 04:00 11/04/17 04:59 11/04/17 06:00 Temperature Pulse Rate 57 L 70 61 Respiratory Rate Blood Pressure Pulse Oximetry 11/04/17 07:00 11/04/17 07:41 11/04/17 08:00 Temperature 98.0 F Pulse Rate 64 79 72 Respiratory Rate 16 Blood Pressure 132/69 Pulse Oximetry 95 11/04/17 09:00 11/04/17 10:37 11/04/17 11:55 Temperature 98.0 F Pulse Rate 84 86 Respiratory Rate 16 Blood Pressure 129/72 Pulse Oximetry 95 97 Intake & Output 11/03/17 11/04/17 11/04/17 18:59 06:59 18:59 Intake Total 245 / 245 480 / 480 Output Total 3 / 3 Balance 245 / 245 477 / 477 Weight 91.36 kg Intake: IV 5 / 5 Heparin/NS PF Inj 1,500 ML @ 0 5 / 5 mls/hr .ROUTE .[facility] Rx#: [id number] Oral 240 / 240 480 / 480 Output: Urine 3 / 3 Other: Date of Last Bowel Movement 11/03/17 11/03/17 Weight On Admission 91.36 kg Narrative: GENERAL: This is a well-nourished, well-developed patient, in no apparent distress. CARDIOVASCULAR: Regular rate and rhythm without murmurs, gallops, or rubs. RESPIRATORY: Clear to auscultation. Breath sounds equal bilaterally. No wheezes , rales, or rhonchi. GASTROINTESTINAL: Abdomen soft, non-tender, nondistended. Normal active bowel sounds MUSCULOSKELETAL: Extremities without clubbing, cyanosis, or edema. NEURO: Alert & Oriented x4 to person, place, time, situation. Moves all ext x4 Right radial: No hematoma, neurovascularly intact Assessment and Plan - Assessment (1) Atypical chest pain Code(s): R07.89 - Other chest pain Status: Acute (2) Abnormal ECG Code(s): R94.31 - Abnormal electrocardiogram [ECG] [EKG] Status: Acute (3) Hypertension Code(s): I10 - Essential (primary) hypertension Status: Acute (4) Hyperlipidemia Code(s): E78.5 - Hyperlipidemia, unspecified Status: Acute - Plan 1) Abnormal EKG/stress test Negative for significant CAD 2) Fluttering Will follow up for rhythm analysis (Holter, event monitor) 3) Echo pending If negative, then can be discharged home from cardio standpoint
--- NOTE | 2017-11-04 14:35 | ECHRPT ---
Indication: CORONARY ATHEROSCLEROSIS CONCLUSIONS The left ventricular systolic function is normal with an estimated ejection fraction in the range of 60-65%. Normal left ventricular size. Wall thickness is normal. No regional wall motion abnormalities are present. [id number] mitral valve regurgitation. Trivial pulmonary valve regurgitation. BP: / HR: Rhythm: Sinus MEASUREMENTS (Male / Female) Normal Values Technical Quality:Fair 2D ECHO LV Diastolic Diameter PLAX 4.1 cm 4.2 - 5.9 / 3.9 - 5.3 cm LV Systolic Diameter PLAX 2.9 cm IVS Diastolic Thickness 1.0 cm 0.6 - 1.0 / 0.6 - 0.9 cm LVPW Diastolic Thickness 1.0 cm 0.6 - 1.0 / 0.6 - 0.9 cm LV Relative Wall Thickness 0.5 RV Internal Dim ED PLAX 2.6 cm LVOT Diameter 2.0 cm LA Systolic Diameter LX 3.9 cm 3.0 - 4.0 / 2.7 - 3.8 cm LV Ejection Fraction MOD 4C 68.1 % LV Ejection Fraction 4C AL 68.5 % M-MODE Aortic Root Diameter MM 2.9 cm LA Systolic Diameter MM 3.9 cm LA Ao Ratio MM 1.3 AV Cusp Separation MM 2.2 cm DOPPLER AV Peak Velocity 81.4 cm/s AV Peak Gradient 2.7 mmHg LVOT Peak Velocity 95.3 cm/s LVOT Peak Gradient 3.6 mmHg AV Area Cont Eq pk 3.7 cm MV Area PHT 4.1 cm Mitral E Point Velocity 69.6 cm/s Mitral A Point Velocity 78.0 cm/s Mitral E to A Ratio 0.9 LV E' Lateral Velocity 8.9 cm/s Mitral E to LV E' Lateral Ratio 7.8 LV E' Septal Velocity 7.9 cm/s Mitral E to LV E' Septal Ratio 8.8 PV Peak Velocity 85.5 cm/s PV Peak Gradient 2.9 mmHg FINDINGS LEFT VENTRICLE The left ventricular systolic function is normal with an estimated ejection fraction in the range of 60-65%. Normal left ventricular size. Wall thickness is normal. No regional wall motion abnormalities are present. RIGHT VENTRICLE Normal right ventricular size and systolic function. LEFT ATRIUM The left atrial size is normal. RIGHT ATRIUM The right atrial size is normal. ATRIAL SEPTUM Normal atrial septal thickness without atrial level shunting by limited color doppler interrogation. AORTA The aortic root and proximal ascending aorta are normal in size on limited imaging. MITRAL VALVE Structurally normal mitral valve. [id number] mitral valve regurgitation. AORTIC VALVE Trileaflet aortic valve. No aortic valve stenosis or regurgitation. TRICUSPID VALVE Structurally normal tricuspid valve. No tricuspid valve stenosis or regurgitation. PULMONARY VALVE Trivial pulmonary valve regurgitation. VESSELS The inferior vena cava is normal in size. PERICARDIUM No pericardial effusion. Lyndon Muñoz (Electronically Signed) Final Date:04 November 2017 14:35
--- NOTE | 2017-11-05 14:42 | TR ---
Date Performed: 11/03/2017 Time Performed: 14:08:43 DOCTOR: Chan Lopez DRUG LIST: CLINICAL HISTORY: REASON FOR TEST: REASON FOR ENDING: OBSERVATION: CONCLUSION: NUC ETT. NO CP. PT WAS SOB.Maximum JS=446 % Max HR Bgsqcjzj=129.0% Maximum MZ=752/70 Total Exercise Time=2:01 COMMENTS: Patient exercised using the Oj protocol. No electrocardiographic changes were seen to suggest ischemia. Hemodynamic response to exercise was normal. No significant arrhythmia was prese nt.
== END 2017-11-04 15:03 | disposition home or self-care (01) ==
LOC: NEDA 09:08 → NEPC 09:08 → NEDA 11:53 → NEPFCDU 11:58 → HCIS 16:21 → HCPC 17:57
PROVIDERS: ADMIT Family Medicine; ATTEND Family Medicine